=== PATIENT | male | born 2000 | race African-American/Black ===

== ENCOUNTER 2023-01-17 01:00 | Emergency (ER) | payer OTHER, SELFPAY ==
[2023-01-17 00:59] VITALS: BP 166/96; PULSE 66; RESP 10; TEMP 36.8; O2SAT 100
--- NOTE | 2023-01-17 01:22 | ED.BACK ---
HPI - Back Pain/Injury General Chief Complaint: Back Pain/Injury Stated Complaint: abd pain Time Seen by Provider: 01/17/23 01:11 History of Present Illness HPI Narrative: This is a 22-year-old male with reported past history of depression, who presents to the emergency department complaining of back pain. He states he has been walking long distances today and has mid to low back pain. Pain is rated 7/10 and is described as sore. He denies trauma, leg weakness, loss of sensation in the groin or loss of bowel or bladder control. He also requests long term resources. He denies suicidal or homicidal ideations. Related Data Allergies Allergy/AdvReac Type Severity Reaction Status Date / Time No Known Allergies Allergy Verified 01/17/23 01:05 Review of Systems Review of Systems: CONSTITUTIONAL: Denies fever, chills, or sweats. CARDIOVASCULAR: Denies chest pain, palpitations, or edema. RESPIRATORY: Denies cough or dyspnea. GASTROINTESTINAL: Denies abdominal pain, nausea, vomiting, or diarrhea. GENITOURINARY: Denies dysuria or hematuria. SKIN: Denies rash or itching. MUSCULOSKELETAL: Back pain denies joint pain, or myalgia. NEUROLOGIC: Denies headache, numbness, dizziness, or weakness. PSYCHIATRIC: Denies anxiety or depression. [facility] Past Medical History Medical History (Updated 01/17/23 @ 01:28 by Boris Callahan MD) Depression Social History Social History (Updated 01/17/23 @ 01:25 by Boris Callahan MD) Smoking status: Current every day smoker Alcohol intake: current Substance use: never Exam Narrative: GENERAL: Well-developed, well-nourished, and in no acute distress. HEAD: Normocephalic, atraumatic. EYES: PERRLA and EOMI. CHEST: Clear to auscultation. No respiratory distress. No wheezes rales or rhonchi HEART: Regular rate and rhythm. No murmur heard. Normal peripheral pulses. ABDOMEN: Soft, nontender, nondistended, normal active bowel sounds. BACK: No midline spine tenderness to palpation, no step-off or crepitus, paraspinal muscle spasm noted from approximately L1 to L3 greater on the right than the left. EXTREMITIES: Normal range of motion. No edema. SKIN: Warm, dry, no rash. NEURO: No focal deficits. Alert and oriented x3. Strength 5/5 in all extremities, sensation intact bilaterally. Patient seen ambulating in the emergency department with a normal gait PSYCH: Normal mood and affect. Course Course Emergency Course: 01:27 - Exam is not concerning for fracture or focal neurodeficit. I do not suspect the need for imaging. Will manage pain, provide the patient with long term resources and discharge. Discussed return and emergency precautions including signs/symptoms of cauda equina. The patient voiced understanding and is comfortable with the plan. All questions answered to her satisfaction. Vital Signs Vital signs: Vital Signs Temperature 98.2 F 01/17/23 00:59 Pulse Rate 66 01/17/23 00:59 Respiratory Rate 10 L 01/17/23 00:59 Blood Pressure 166/96 H 01/17/23 00:59 Pulse Oximetry 100 01/17/23 00:59 Oxygen Delivery Room Air 01/17/23 00:59 Temperature 98.2 F 01/17/23 00:59 Pulse Rate 56 L 01/17/23 02:10 Respiratory Rate 16 01/17/23 02:10 Blood Pressure 156/90 H 01/17/23 02:10 Pulse Oximetry 97 01/17/23 02:10 Oxygen Delivery Room Air 01/17/23 00:59 MDM - Back Pain/Injury MDM Narrative Medical decision making narrative: Plan: Pain control, provide long term resources, reassess Differential Diagnosis Differential diagnosis: Likely strain of lumbar region and other (Strain of thoracic spine, muscle spasm, other) Discharge Plan Discharge Clinical Impression: Strain of lumbar region Qualifiers: Encounter type: initial encounter Qualified Code(s): S39.012A - Strain of muscle, fascia and tendon of lower back, initial encounter Patient Disposition: Home, Self-Care Condition: Stable Instructions: Antibiotic Form, Acute Low Back Pa
[2023-01-17] MEDS: KETOROLAC 30 MG/ML VIAL (*BKC) IM (01:33)
[2023-01-17] MEDS: LIDOCAINE 5% PATCH 1 PATCH TRANSDERM (01:33)
[2023-01-17] MEDS: ACETAMINOPHEN 500 MG TABLET 1000 MG PO (01:33)
[2023-01-17 02:10] VITALS: BP 156/90; PULSE 56; RESP 16; O2SAT 97
== END 2023-01-17 02:16 | disposition home or self-care (01) ==
LOC: ANHED 01:38
PROVIDERS: Emergency Provider Preventive Medicine Aerospace Medicine
DX: S39.012A Strain of muscle, fascia and tendon of lower back, initial encounter (principal); F32.A Depression, unspecified; X50.3XXA Overexertion from repetitive movements, initial encounter
CPT/HCPCS: 96372; 99283; A9270; J1885